=== PATIENT | male | born 1960 | race Two or more races ===

== ENCOUNTER 2019-03-04 04:58 | Inpatient (IN) | payer OTHER ==
[2019-03-04] VITALS (10 sets, daily range): BP systolic 98–134; BP diastolic 52–97
[~2019-03-04] VITALS: Ht 175.3 cm; Wt 110.2 kg
--- NOTE | 2019-03-04 05:05 | NUR ---
MS CEMENT CONVEYOR OPERATOR NOTES Received patient from home, ambulatory, accompanied by a friend. Admitted to [facility] for day surgery under the service of Dr. Saqib Frausto. Assisted to bed comfortably. Admission routine done. Belongings inventory completed by the assigned DESKTOP PUBLISHING OPERATOR. Pre-op routine done. Patient signed the consents witness by the assigned RN. Inserted peripheral IV line RFA G#18, well blood return noted after 1st attempt. Instructed on deep breathing techniques. Inquiries answered with satisfaction. Kept patient on bed clean, dry and comfortable. Call light within easy reach. Friend remained at bedside. Will continue to monitor accordingly.
--- NOTE | 2019-03-04 06:54 | NUR ---
MS RN CLOSING NOTES Patient on bed, asleep, awaiting for surgery. Remained stable, no new complaints made. Endorsed to the next shift.
--- NOTE | 2019-03-04 07:30 | NUR ---
MS/RN - Assessment Patient is A/O x 4, no apparent distress seen, stable on room air, no c/o pain, pre-op labs ordered as STAT, currently NPO. Saline lock on the RFA 18 is patent, intact, flushing well. Patient signed the consent for left shoulder arthroplasty versus left reverse total shoulder arthroplasty with Dr. Frausto. Pre-op checklist completed, endorsed to OR staff accordingly.
[2019-03-04 07:39] LABS: BASOPHILS % (AUTO) 0.4 % (0.0-2.0); EOSINOPHILS % (AUTO) 0.1 % (0.0-6.0); HEMATOCRIT 43 % (39-51); HEMOGLOBIN 14.7 g/dL (13.5-17.5); LYMPHOCYTES # (AUTO) 1.4 /CMM (0.8-4.8); LYMPHOCYTES % (AUTO) 14.2 % (20.0-44.0); MEAN CORPUSCULAR HGB CONC 34 g/dl (31.0-36.0); MEAN CORPUSCULAR VOLUME 86 fL (80-96); MONOCYTES # (AUTO) 0.8 /CMM (0.1-1.30); MONOCYTES % (AUTO) 7.9 % (2.0-12.0); NEUTROPHILS # (AUTO) 7.6 /CMM (1.8-8.9); NEUTROPHILS % (AUTO) 77.4 % (43.0-81.0); PLATELET COUNT (AUTO) 215 /CMM (150-450); RED BLOOD CELL COUNT(AUTO) 5.02 MIL/uL (4.5-6.0); WHITE BLOOD COUNT (AUTO) 9.8 K/uL (4.3-11.0)
[2019-03-04 07:50] LABS: CALCIUM, SERUM 8.8 mg/dL (8.5-10.1); CREATININE 1.9 mg/dL (0.6-1.3); POTASSIUM 4.1 mmol/L (3.5-5.1)
[2019-03-04] MEDS ORDERED: BUPIVACAINE 0.25% 75 MG/30 ML VIAL ONE (09:12)
[2019-03-04] MEDS ORDERED: MIDAZOLAM HCL 2 MG/2ML VIAL ONE (09:12)
[2019-03-04] MEDS ORDERED: HYDROMORPHONE INJ 2 MG/ML DISP.SYRIN ONE ×2 (09:12→13:39)
[2019-03-04] MEDS ORDERED: BACITRACIN 50000 UNITS/VIAL ONE (11:21)
[2019-03-04] MEDS ORDERED: TRANEXAMIC ACID 1,000 MG in SODIUM CHLORIDE IRRIG SOLUTION 90 ML IR ONE (11:30)
[2019-03-04] MEDS ORDERED: ROCURONIUM BROMIDE 50 MG/5 ML ONE (11:35)
[2019-03-04] MEDS ORDERED: BUPIVACAINE 0.5 % PF 150 MG/30 ML VIAL ONE (13:01)
--- NOTE | 2019-03-04 14:30 | NUR ---
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 pt used to take metformin 500mg po bid, but was changed to 1000mg po daily per friend translating at bedside.
--- NOTE | 2019-03-04 14:30 | NUR ---
MS RN NOTES - BACK FROM OR PATIENT RECEIVED FROM OR S/P LEFT TOTAL SHOULDER ARTHROPLASTY WITH DR. KATE. PATIENT IN NO ACUTE DISTRESS. A/O X4. DENIES PAIN, SLING ON LEFT UPPER EXTREMITY IN PLACE, ICE PACK. VITAL SIGNS WNL. POST OP ORDERS CARRIED OUT, CONTINUE NWB ON LUE. NO PT REQUIRED. WILL NOTIFY DR. SIFUENTES FOR FURTHER ADMISSION ORDERS.
[2019-03-04] MEDS ORDERED: METF-442 PO (14:37)
[2019-03-04] MEDS ORDERED: IBUP-1953 PO (14:37)
[2019-03-04] MEDS ORDERED: LISI40TA4 PO (14:37)
[2019-03-04] MEDS ORDERED: NIFE30TA91 PO (14:37)
[2019-03-04] MEDS ORDERED: AMLO10TA7 PO (14:37)
[2019-03-04] MEDS ORDERED: IBUPROFEN 600 MG TABLET PO PRN (15:00)
[2019-03-04] MEDS ORDERED: DEXTROSE 50%-WATER 50 ML DISP.SYRIN IV PRN (17:00)
[2019-03-04] MEDS: BLOOD SUGAR DIAGNOSTIC 1 EACH STRIP IN SCH ×2 (17:18→21:33)
[2019-03-04] MEDS: INSULIN REGULAR, HUMAN 100 UNIT/ML 3 ML VIAL SQ PRN ×2 (17:20→21:35)
--- NOTE | 2019-03-04 17:35 | NUR ---
MS RN CLOSING NOTES PATIENT S/P LEFT TOTAL SHOULDER ARTHROPLASTY WITH DR. KATE. RESTING IN BED, A/O X4, AND SHOWING NO SIGNS OF ACUTE DISTRESS OR SOB. VITAL SIGNS WNL AND SATURATING >95% ON 2L NC. IV SITE RFA IS CLEAN, PATENT AND FLUSHING WELL. ALL DUE MEDS GIVEN AND ALL PATIENT NEEDS WERE MET. BED IS LOWEST POSITION, SIDE RAILS X2 IN UPRIGHT POSITION. CALL LIGHT IS WITHIN REACH AND PATIENT IS AWARE OF HOW TO CALL FOR ASSISTANCE WHEN NEEDED. WILL ENDORSE TO CAKE KNOCKER.
--- NOTE | 2019-03-04 19:00 | NUR ---
RN MS OPENING NOTES RECEIVED PATIENT IN BED AWAKE, ALERT AND ORIENTED X4, VERBALLY RESPONSIVE, ABLE TO MAKE NEEDS KNOWN GERMAN SPEAKER. BREATHING EVEN AND UNLABORED. NO SOB NOTED. ON 2LPM NC. CURRENTLY DENIES PAIN OR DISCOMFORT. IV ON RIGHT FA INTACT AND PATENT. SLING ON LEFT ARM/SHOULDER IN PLACE. INCISION DRESSING DRY AND INTACT. ALL OTHER NEEDS ATTENDED TO. SAFETY MEASURES IN PLACE. CALL LIGHT WITHIN REACH. WILL CONTINUE TO MONITOR.
[2019-03-04] MEDS: CEFAZOLIN IV SCH (19:58)
[2019-03-04] MEDS: NS 0.9% IV SCH (19:58)
[2019-03-04] MEDS: HYDROCODONE/APAP 10/325MG 1 EA TABLET PO PRN (20:18)
[2019-03-04] MEDS: MORPHINE SULFATE INJ 4 MG/ML DISP.SYRIN IV PRN (22:43)
[2019-03-05] MEDS: HYDROCODONE/APAP 10/325MG 1 EA TABLET PO PRN ×5 (00:44→13:01)
[2019-03-05] MEDS: MORPHINE SULFATE INJ 4 MG/ML DISP.SYRIN IV PRN ×2 (03:53→08:19)
[2019-03-05] MEDS: CEFAZOLIN IV SCH ×2 (05:07→13:00)
[2019-03-05] MEDS: NS 0.9% IV SCH ×2 (05:07→13:00)
[2019-03-05] MEDS: BLOOD SUGAR DIAGNOSTIC 1 EACH STRIP IN SCH ×2 (06:37→12:06)
[2019-03-05] MEDS: INSULIN REGULAR, HUMAN 100 UNIT/ML 3 ML VIAL SQ PRN ×2 (06:38→12:10)
--- NOTE | 2019-03-05 06:48 | NUR ---
RN MS CLOSING NOTES PATIENT RESTING IN BED. IN NO DISTRESS. BREATHING EVEN AND UNLABORED. NO SOB NOTED. ON 2LPM NC. WITH COMPLAINTS OF PAIN ON THE LEFT SHOULDER THROUGHOUT SHIFT. PRN PAIN MEDICATION GIVEN ORDERED. IV ON RIGHT FA INTACT AND PATENT. SLING ON LEFT ARM/SHOULDER IN PLACE. INCISION DRESSING DRY AND INTACT. REMAINS AFEBRILE. ALL OTHER NEEDS ATTENDED TO. SAFETY MEASURES IN PLACE. CALL LIGHT WITHIN REACH. WILL ENDORSE TO ONCOMING NURSE FOR SUZETTE.
--- NOTE | 2019-03-05 07:20 | NUR ---
MS RN OPENING NOTES ALERT AND ORIENTED X4. NO SOB OBSERVED. PATIENT C/O PAIN, PRN MED GIVEN ORDERED FRANNIE WELL. LEFT ARM SLING IN PLACE WITH DRESSING INTACT. RFA # 20 SL INTACT AND PATENT WITHOUT S/S OF COMPLICATIONS. BED IN LOWEST POSITION, LOCKED. BED ALARM ON. CALL LIGHT WITHIN REACH. ABLE TO VERBALIZE NEEDS.
[2019-03-05 08:00] VITALS: BP 138/83
[2019-03-05] MEDS ORDERED: LISINOPRIL (20MG) 20 MG TABLET PO SCH (09:00)
[2019-03-05] MEDS ORDERED: AMLODIPINE BESYLATE 10 MG TABLET PO SCH (09:00)
[2019-03-05] MEDS ORDERED: METFORMIN 500 MG TABLET PO SCH (09:00)
[2019-03-05] MEDS ORDERED: NIFEdipine XL (30MG) 30 MG TAB PO SCH (09:00)
[2019-03-05 09:38] VITALS: BP 115/78
--- NOTE | 2019-03-05 14:28 | NUR ---
MS RN CLOSING DISCHARGE NOTES ALERT AND ORIENTED X4. NO SOB OBSERVED. PAIN MANAGED AND TOLERABLE COMPARED TO THIS MORNING PER PATIENT. AMBULATORY WITH STEADY GAIT. DISCHARGE PACKET AND DISCHARGE INTRUCTIONS GIVEN TO PATIENT AND VERBALIZES UNDERSTANDING. PATIENT ACCOMPANIED BY FRIEND. LEFT SHOULDER DRESSING INTACT WITHOUT S/S OF COMPLICATIONS. COLOSTOMY CHANGED. PATIENT SEEN BY LEIGHANN CHACKO OF DR. KATE AND EXPLAINED DISCHARGE INSTRUCTIONS AND CARE OF LEFT ARM. ALL BELONGINGS ACCOUNTED FOR. AMBULATORY WITH STEADY GAIT. IN NO APPARENT DISTRESS. PATIENT LEFT IN STABLE CONDITION ACCOMPANIED BY FRIEND SERENA. Addendum: 03/05/19 at 1441 by JOSE CARLOS FENG RN IV ACCESS REMOVED WITH CATHETER TIP INTACT, GAUZE DRESSING APPLIED.
== END 2019-03-05 14:39 | disposition home or self-care (01) | DRG 483 ==
LOC: DS 04:58 → MED 04:59
PROVIDERS: ADMIT Student in an Organized Health Care Education/Training Program; ATTEND Student in an Organized Health Care Education/Training Program
PROC: 0RRK0JZ Replacement of Left Shoulder Joint with Synthetic Substitute, Open Approach (ICD-10-PCS; principal; 2019-03-04)
DX: M19.012 Primary osteoarthritis, left shoulder (principal); E11.9 Type 2 diabetes mellitus without complications; I10 Essential (primary) hypertension; E66.9 Obesity, unspecified; Z68.35 Body mass index [BMI] 35.0-35.9, adult
CPT/HCPCS: 36415; 80048-TC; 82962-TC; 85025-TC; 85610-TC; 86850-TC; 87081-TC; 88305-TC; 88311-TC; G0378; J0690; J1170; J1200; J1815; J2250; J2270; J2405; J2704; J2765; J3490; J7030; J7050